=== PATIENT | male | born 1940 | race Caucasian/White ===

== ENCOUNTER 2021-10-15 09:10 | Emergency (ER) | payer MEDICARE, OTHER ==
[2021-10-15 12:16] LABS: HEMOGLOBIN 14.3 gm/dl (14.0-17.5); RED BLOOD COUNT 4.3 M/UL (4.20-5.50); WHITE BLOOD COUNT 8.9 K/UL (4.5-11.0)
[2021-10-15] MEDS ORDERED: ZOFRAN ODT 4 MG4 MG PO (14:41)
== END 2021-10-15 15:52 | disposition home or self-care (01) ==
LOC: ER1 09:10
PROVIDERS: Physician Assistant
DX: R10.9 Unspecified abdominal pain (principal); I12.9 Hypertensive chronic kidney disease with stage 1 through stage 4 chronic kidney disease, or unspecified chronic kidney disease; N18.9 Chronic kidney disease, unspecified; Z88.8 Allergy status to other drugs, medicaments and biological substances
CPT/HCPCS: 80053; 81001; 82150; 83690; 85025; 93005; 96374; 99284; J2405

== ENCOUNTER 2021-10-20 09:38 | Emergency (ER) | payer MEDICARE, OTHER ==
[~2021-10-20 09:38] MED LIST: ZOFRAN ODT 4 MG4 MG PO
[2021-10-20 11:45] LABS: HEMOGLOBIN 12.9 gm/dl (14.0-17.5); RED BLOOD COUNT 3.92 M/UL (4.20-5.50); WHITE BLOOD COUNT 6.9 K/UL (4.5-11.0)
[2021-10-20] MEDS ORDERED: ZOFRAN ODT 4 MG4 MG PO (17:40)
[2021-11-27] MEDS ORDERED: ASPIRIN81 MG PO (12:52)
[2021-11-27] MEDS ORDERED: FENOFIBRATE145 MG PO (12:53)
[2021-11-27] MEDS ORDERED: LIPITOR TAB 1010 MG PO (12:53)
[2021-11-27] MEDS ORDERED: PROPRANOLOL HCL20 MG PO (12:54)
[2021-11-27] MEDS ORDERED: REGLAN10 MG PO (12:55)
[2021-11-27] MEDS ORDERED: FLOMAX 0.4 MG0.4 MG PO (12:55)
[2021-11-28] MEDS ORDERED: ESOMEPRAZOLE MA40 MG PO (08:27)
== END 2021-10-20 18:45 | disposition home or self-care (01) ==
LOC: ER1 09:38
PROVIDERS: Family Medicine
DX: K43.9 Ventral hernia without obstruction or gangrene (principal); K44.9 Diaphragmatic hernia without obstruction or gangrene; N18.9 Chronic kidney disease, unspecified; M48.55XA Collapsed vertebra, not elsewhere classified, thoracolumbar region, initial encounter for fracture; R25.1 Tremor, unspecified; Z88.1 Allergy status to other antibiotic agents
CPT/HCPCS: 71045; 74018; 80053; 82550; 82553; 83605; 83690; 83874; 84484; 85025; 93005; 99284

== ENCOUNTER → 2021-11-28 | Day surgery (SDC) | payer MEDICARE, OTHER ==
[~2021-11-28] MED LIST changes: +ASPIRIN81 MG PO; +ESOMEPRAZOLE MA40 MG PO; +FENOFIBRATE145 MG PO; +FLOMAX 0.4 MG0.4 MG PO; +LIPITOR TAB 1010 MG PO; +PROPRANOLOL HCL20 MG PO; +REGLAN10 MG PO
== END | disposition home or self-care (01) ==
LOC: OR 06:56
DX: K29.50 Unspecified chronic gastritis without bleeding (principal); K31.7 Polyp of stomach and duodenum; K22.2 Esophageal obstruction; K22.10 Ulcer of esophagus without bleeding; K31.89 Other diseases of stomach and duodenum; K43.9 Ventral hernia without obstruction or gangrene; E78.00 Pure hypercholesterolemia, unspecified; I12.9 Hypertensive chronic kidney disease with stage 1 through stage 4 chronic kidney disease, or unspecified chronic kidney disease; N18.9 Chronic kidney disease, unspecified; Z20.822 Contact with and (suspected) exposure to COVID-19; Z88.1 Allergy status to other antibiotic agents; Z88.8 Allergy status to other drugs, medicaments and biological substances; Z79.82 Long term (current) use of aspirin
CPT/HCPCS: J2704; J7040

== ENCOUNTER → 2022-03-14 | Outpatient (CLI) | payer MEDICARE, OTHER ==
[2022-03-14 14:05] LABS: HEMOGLOBIN 12.4 gm/dl (14.0-17.5); RED BLOOD COUNT 3.87 M/UL (4.20-5.50); WHITE BLOOD COUNT 4.8 K/UL (4.5-11.0)
[2022-03-14 14:56] LABS: BUN/CREATININE RATIO 22 (0-10)
== END ==
LOC: LAB 11:58
PROVIDERS: Physician Assistant Medical
DX: E78.2 Mixed hyperlipidemia (principal); R42 Dizziness and giddiness; R53.83 Other fatigue
CPT/HCPCS: 36415; 80053; 80061; 84443; 85027